=== PATIENT | female | born 1960 | race Caucasian/White ===

== ENCOUNTER 2018-08-01 15:00 | Day surgery (SDC) | payer OTHER ==
[~2018-08-01] VITALS: Ht 157.5 cm; Wt 78.6 kg
[2018-08-01 15:18] VITALS: BP 126/87
[2018-08-01] MEDS ORDERED: LACTATED RINGERS 1,000 ML IV SCH (15:19)
[2018-08-01] MEDS ORDERED: PLEASE ENTER HEIGHT AND WEIGHT MC SCH (15:23)
[2018-08-01] MEDS ORDERED: SCOPOLAMINE PATCH, 1.5MG PATCH.TD72 TD ONE (15:30)
[2018-08-01] MEDS ORDERED: GABAPENTIN 300 MG CAPSULE PO ONE (15:30)
[2018-08-01] MEDS ORDERED: ACETAMINOPHEN 500 MG TABLET PO ONE (15:30)
[2018-08-01] MEDS ORDERED: LEVO125T5 PO (15:46)
[2018-08-01] MEDS ORDERED: HYDR-3240 PO (15:46)
[2018-08-01] MEDS ORDERED: PLEASE ENTER ALLERGIES MC SCH (16:00)
[2018-08-01] MEDS ORDERED: FENTANYL PF 250 MCG/5ML ONE (16:41)
[2018-08-01] MEDS ORDERED: MIDAZOLAM 1 MG/ML, 2ML ONE (16:41)
[2018-08-01] MEDS ORDERED: BUPIVACAINE/PF 0.5% ONE ×2 (16:49→17:06)
[2018-08-01] MEDS ORDERED: ONDANSETRON ODT 8 MG PO PRN (17:00)
[2018-08-01] MEDS ORDERED: PROMETHAZINE 25 MG/ML, 1ML IV PRN (17:00)
[2018-08-01] MEDS ORDERED: PROMETHAZINE 25 MG SUPP PR PRN (17:00)
[2018-08-01] MEDS ORDERED: hydrALAzine 20 MG/ML, 1ML IV PRN (17:00)
[2018-08-01] MEDS ORDERED: HALOPERIDOL 5 MG/ML IV PRN (17:00)
[2018-08-01] MEDS ORDERED: MEPERIDINE/PF 25MG/0.5ML IVPush PRN (17:00)
[2018-08-01] MEDS ORDERED: PROMETHAZINE 25 MG/ML, 1ML IM PRN ×3 (17:00→23:00)
[2018-08-01] MEDS ORDERED: ONDANSETRON 2MG/ML, 2ML IV PRN ×2 (17:00→23:00)
[2018-08-01] MEDS ORDERED: MORPHINE SULFATE 4 MG/ML, 1ML IVPush PRN (17:00)
[2018-08-01] MEDS ORDERED: LABETALOL 5MG/ML, 20ML IV PRN (17:00)
[2018-08-01] MEDS ORDERED: OXYcodone 5 MG/5 ML ORAL.SOL UDC PO PRN ×2 (17:00→23:00)
[2018-08-01] MEDS ORDERED: HYDROmorphone 2 MG/ML, 1ML IVPush PRN (17:00)
[2018-08-01] MEDS ORDERED: PROMETHAZINE 12.5 MG SUPP PR PRN (17:00)
[2018-08-01] MEDS ORDERED: BUPIVACAINE/PF 0.5% INFIL ONE (19:53)
[2018-08-01] MEDS ORDERED: FENTANYL PF 100 MCG/2ML ONE ×2 (20:27→21:34)
[2018-08-01] MEDS ORDERED: CEFAZOLIN 1,000 MG ONE ×2 (20:39)
[2018-08-01] MEDS ORDERED: DEXAMETHASONE 4 MG/ML, 1ML ONE ×2 (20:39)
[2018-08-01] MEDS ORDERED: ONDANSETRON 2MG/ML, 2ML ONE (20:39)
[2018-08-01] MEDS ORDERED: PROPOFOL 10 MG/ML, 20ML ONE (20:39)
[2018-08-01] MEDS ORDERED: OXYcodone 5 MG/5 ML ORAL.SOL UDC ONE (21:33)
[2018-08-01] MEDS: FENTANYL PF 100 MCG/2ML IV PRN ×2 (21:37→21:43)
[2018-08-01] MEDS ORDERED: KETOROLAC 30 MG/1 ML IV SCH (23:00)
[2018-08-01] MEDS ORDERED: OXYcodone/APAP 5/325MG TABLET PO PRN (23:00)
[2018-08-01] MEDS ORDERED: morphine SULFATE 10 MG/ML, 1ML IV PRN (23:00)
== END 2018-08-01 23:26 | disposition home or self-care (01) ==
LOC: OR 15:00 → 4NOR 22:15 → OR 23:26
PROVIDERS: ATTEND Orthopaedic Surgery
DX: S52.571A Other intraarticular fracture of lower end of right radius, initial encounter for closed fracture (principal); G56.01 Carpal tunnel syndrome, right upper limb; E03.9 Hypothyroidism, unspecified; V80.010A Animal-rider injured by fall from or being thrown from horse in noncollision accident, initial encounter; Y93.89 Activity, other specified; Y92.89 Other specified places as the place of occurrence of the external cause; Y99.8 Other external cause status
CPT/HCPCS: 25609; 64721; 73100; 76000; C1713; C1776; J0690; J1100; J1885; J2250; J2405; J2704; J3010; J7120; G0378